=== PATIENT | female | born 1955 | race Caucasian/White ===

== ENCOUNTER → 2018-09-08 | Outpatient (CLI) | payer OTHER ==
[~2018-09-08] VITALS: Ht 157.5 cm; Wt 71.6 kg
[~2018-09-08] MED LIST: ACETAMINOPHEN-1 EAC1 PO; AMBIEN 10 MG TA10 MG PO; AMBIEN CR 6.26.25 MG PO; ATENOLOL 25 MG25 M1 PO; ATENOLOL 50 MG50 M1 PO; B12INJ IM; BRINTELLIX5 MG PO; BUTALBITAL COM1 EAC1 PO; CARAFATE 1 GM TA1 GM PO; CITRATE OF MAG296 M1 PO; COQ-10100 MG PO; DIFLUCAN; ERYTHROMYCIN250 MG PO; FIORICET 50-321 EACH PO; FISH OIL 1,001000 M2 PO; KLOR-CON 1010 MEQ PO; LOPRESSOR25 PO; NEXIUM 40 MG CA40 M1 PO; OXYCODONE HCL5 M1 PO; POTASSIUM20 PO; PRILOSEC40 MG PO; PRISTIQ100 MG PO; PROGESTERONE100 MG PO; SEROQUEL 100 M100 M2 PO; SEROQUEL 50 MG50 M2 PO; SEROQUEL XR 30300 M1 PO; SIMVASTATIN40 MG PO; SYNTHROID50 MCG PO; VITAMIN E400 UNIT PO; VOLTAREN GEL 1100 G2 TOP; VYVANSE30 MG PO; VYVANSE70 MG PO; XANAX 0.5 MG0.5 M1 PO; XANAX XR0.5 MG PO; ZOLPIDEM TART12.5 M1 PO
--- NOTE | ~2018-09-08 | HPC ---
[facility] [address] [place] [address] PAIN MANAGEMENT CONSULTATION Name: ERMELINDA MICHAUD Room #: REG [facility].#: [id number] Admission: 09/08/18 Attend Phys: Dick Sue DO Discharge: Date of : 59 Report #: [id number] THIS REPORT FOR: //name// CC: Melisa Sue DATE OF SERVICE: 09/08/2018 REFERRING PHYSICIAN: Melisa Kendall MD CHIEF COMPLAINT: Low back pain, left lower extremity pain with paresthesias, intermittent right buttock and posterolateral thigh pain. HISTORY OF PRESENT ILLNESS: As you know, the patient is a very pleasant 63-year-old female who returns today in followup visit with recurrent low back pain, bilateral lower extremity pain, left greater than right. She indicates pain today at a level of about 4/10. She states she was in her normal state of health, was going about normal activities of daily living with her pain began to return. She indicates pain progressively worsened over the past couple of weeks to a level of 4/10, states the pain is exacerbated with standing, walking and bending, improves with heat and cold compresses and epidural injections. Most recent epidural injection provided 75% improvement in overall pain lasting for nearly 5 months. She returns today in followup visit to undergo next in the series in hopes of building on success of previous intervention. ALLERGIES: NONSTEROIDAL ANTI-INFLAMMATORIES, ABILIFY, ADDERALL, SEROQUEL, TETRACYCLINE. CURRENT MEDICATIONS: Coenzyme Q 100 mg once a day, magnesium citrate p.r.n., vitamin E 400 units per day, omega-3 fish oil 1000 mg once a day, levothyroxine 50 mcg per day, diclofenac gel apply topically 3 times a day, Tylenol 3 with Codeine 1 tab t.i.d. p.r.n. pain, Pristiq 100 mg once a day, metoprolol 25 mg twice a day, quetiapine 50 mg 3 times a day, potassium chloride 10 mEq once a day, zolpidem 12.5 mg once a day, Vyvanse 30 mg once a day, alprazolam 0.5 mg once a day p.r.n., sucralfate 1 gram twice a day. SOCIAL HISTORY: The patient denies current tobacco use. Denies IV or illicit drug use. She is unaccompanied today. IMAGING: No new imaging available. PQRS: The patient has osteoarthritis of the low back, bilateral hips and bilateral knees. No rheumatoid arthritis. She is placing pain intensity 4/10. She is not a fall risk, has not had a fall in the last 3 months. She is not on a blood thinner. She is treated for hypertension. She is not taking any [address] [address] PAIN MANAGEMENT CONSULTATION Name: ERMELINDA MICHAUD [id number] Admission: 09/08/18 Attend Phys: Dick Sue DO Discharge: Date of : 59 Report #: [id number] chronic opioids. She has a low risk for opioid addiction. Pain impact tool, functional impact 43/70, [id number] interference of daily activities secondary to pain. PHYSICAL EXAMINATION: VITAL SIGNS: Blood pressure 145/77, pulse is 80, respiratory rate 16 and unlabored. The patient is 99% on room air. Height 5 feet 2 inches tall, weight 157.8 pounds, BMI calculated 28.9. GENERAL: Well-developed, well-nourished, well-hydrated 63-year-old female. She appears her stated age. She is placing current pain at around 4/10. HEENT: Normocephalic, atraumatic. Pupils equal, round, reactive to light. Extraocular muscles are intact. Sclerae nonicteric without injection. NEUROLOGIC: Cranial nerves 2-12 grossly intact. Speech is fluent. EXTREMITIES: Show no clubbing, no cyanosis, no edema. MUSCULOSKELETAL: Lower extremity strength appears symmetrical 5/5, intact to light touch from L1 through S2 dermatomes. Seated straight leg raising negative. Supine straight leg raising positive on the left. Taqueria test negative. Modified Gaenslen's positive for axial low back pain. Lumbar provocation testing is met with increasing axial back pain, no radiation of symptoms. ASSESSMENT: 1. Symptomatic lumbar radiculopathy. 2. Lumbosacral spondylosis with radiculopathy. 3. Facet arthropathy of the lumbar spine. 4. Lumbar degeneration of the lumbar spine. 5. Chronic intractable pain. PLAN: 1. The patient returns today in followup visit having noted 75% improvement in overall pain with a previous epidural injection under fluoroscopic guidance. The patient and I did discuss the possibility of having her undergo next in the series of epidural injections to build on the success of this previous intervention. The distribution of symptoms the patient is experiencing as well as the level of intensity of pain is similar to her previous evaluation. She has requested this epidural injection be provided today. We discussed the risks and the benefits of a lumbar epidural injection. These risks include but not necessarily limited to bleeding, bruising, infection, worsening pain, no relief of pain, also risk of temporary or permanent muscle weakness, temporary or permanent nerve damage, possible paralysis and . The patient states understood and wished to proceed. 2. No medication changes made at today's visit. The patient will continue current medical therapy as previously prescribed. 3. We will see the patient back in followup visit on an as needed basis for possible next in the series of epidural injections. [address] [address] PAIN MANAGEMENT CONSULTATION Name: ERMELINDA MICHAUD [id number] Admission: 09/08/18 Attend Phys: Dick Sue DO Discharge: Date of : 59 Report #: [id number] PROCEDURE NOTE DESCRIPTION OF PROCEDURE: L5-S1 interlaminar epidural steroid injection under fluoroscopic guidance. After obtaining written consent, the patient was taken back to fluoroscopy suite, placed in prone position with pillow under abdomen to decrease lumbar lordosis. Skin overlying lumbosacral area then prepped and draped in aseptic fashion. Lumbar intervertebral spaces were identified by AP fluoroscopy. Skin and subcutaneous tissue overlying target site of injection was anesthetized with 3 mL of 1% lidocaine. A 20-gauge 3-1/2 inch Tuohy needle advanced under fluoroscopic guidance towards the epidural space using a parasagittal approach. The epidural space identified using loss of resistance to air technique. After negative aspiration for heme or cerebrospinal fluid, 1 mL of Omnipaque injected. Lumbar epidurogram confirmed using both AP and lateral fluoroscopy. After negative aspiration for heme or cerebrospinal fluid, 5 mL of a solution containing 2 mL 40 mg per mL, 80 mg total triamcinolone, 3 mL lidocaine 1% injected slowly. Needle retracted fpc, flushed with 1 mL of 1% lidocaine and removed. Sterile bandage placed over injection site. No new motor deficits present in lower extremity following procedure. The patient tolerated the procedure well, carefully escorted to recovery room in stable condition. No apparent complications. After meeting discharge criteria, the patient discharged home. By: [id number] Dick Sue, /nt
[2018-09-08 09:33] VITALS: BP 145/77
== END | disposition home or self-care (01) ==
LOC: PAIN 09-07 10:14
DX: M51.16 Intervertebral disc disorders with radiculopathy, lumbar region (principal); M47.27 Other spondylosis with radiculopathy, lumbosacral region; M46.96 Unspecified inflammatory spondylopathy, lumbar region; G89.29 Other chronic pain; M19.90 Unspecified osteoarthritis, unspecified site; Z79.899 Other long term (current) drug therapy; Z88.8 Allergy status to other drugs, medicaments and biological substances; Z87.891 Personal history of nicotine dependence

== ENCOUNTER → 2019-03-29 | Outpatient (CLI) | payer OTHER ==
[~2019-03-29] VITALS: Ht 157.5 cm; Wt 61.7 kg
[2019-03-29 10:14] VITALS: BP 123/90
--- NOTE | 2019-03-29 10:24 | NUR ---
Pain Clinic Assessment: 1. History of Osteoarthritis: YES History of Rheumatoid Arthritis: Not Applicable 2. Height: 5 ft. 2 in. 157.5 cm. Weight: 136.0 lb. oz. 61.689 kg. Patient's BMI: 24.9 3. Vital Signs: BP: 123/90 Pulse: 83 Resp: 16 Temp: 02 Sat: 99 ECG Mon: 4. Pain Intensity: 9-10 5. Fall Risk: Dizziness: N Needs help standing or walking: N Fallen in the last 3 months: N Fall risk comments: 6. Patient on Blood Thinner: None 7. History of Hypertension: Y 8. Opioid Therapy greater than 6 weeks: N Opiate Contract Signed: 9. Risk Assessment Tool Provided: LOW RISK 3 10. Functional Assessment Tool: 59/70 11. Recreational Drug Use: Never Drug Type: Tobacco Use: Former Smoker Tobacco Type: Amount or Packs/day: How Many Years: Alcohol Use: No Frequency: Quant:
--- NOTE | 2019-03-30 12:16 | HPC ---
[facility] [address] [place] [address] PAIN MANAGEMENT CONSULTATION Name: ERMELINDA MICHAUD Room #: REG [facility].#: [id number] Admission: 03/29/19 ������������������ Attend Phys: Dick Sue DO Discharge: ������������������ Date of : 59 Report #: [id number] THIS REPORT FOR: //name// CC: Melisa Sue DATE OF SERVICE: 03/29/2019 CHIEF COMPLAINT: Low back pain, lower extremity pain with paresthesias. HISTORY OF PRESENT ILLNESS: As you know, the patient is a very pleasant 63-year-old female returning in followup visit with recurrent low back pain, lower extremity pain with paresthesias with left and right approximately equal from the lower extremity pain standpoint. She is indicating pain is chronic in nature, sharp in sensation, places current pain score anywhere from 9-10/10. She states standing, bending, walking exacerbates symptoms. Heat and cold compresses as well as previous epidural injections have improved overall pain. She indicates previous epidural injection gave 80% improvement in overall pain lasting for nearly 6 months. She returns today in followup visit requesting to undergo next in the series of epidural injections in hopes of similar improvement. She denies new injury or trauma or any changes in medication management since our last visit. ALLERGIES: NONSTEROIDAL ANTI-INFLAMMATORIES, ABILIFY, ADDERALL, SEROQUEL, TETRACYCLINE. CURRENT MEDICATIONS: See chart. SOCIAL HISTORY: The patient denies current tobacco use. Denies IV or illicit drug use. Denies any chronic alcohol use. She is unaccompanied today. IMAGING: No new imaging available. PQRS, the patient has known osteoarthritic changes of the bilateral hips, bilateral knees and lumbar spine. No rheumatoid arthritis. She is placing pain intensity today at 9-10/10. She is not a fall risk, has not had a fall in the last 3 months. She does not use any type of ambulatory assistive device. She is not on blood thinner. She is treated for hypertension. She is not on opioids, but does have a low opioid addiction potential. Pain impact score 59/70 indicating severe interference of daily activities secondary to pain. PHYSICAL EXAMINATION: VITAL SIGNS: Blood pressure 123/90, pulse 83, respiratory rate 16 and unlabored. The patient is 99% on room air. Height 5 feet 2 inches tall, weight 136 pounds, BMI calculated 24.9. [address] [address] PAIN MANAGEMENT CONSULTATION Name: ERMELINDA MICHAUD Room #: REG [facility]#: [id number] Admission: 03/29/19 ������������������ Attend Phys: Dick Sue DO Discharge: ������������������ Date of : 59 Report #: [id number] GENERAL: Well-developed, well-nourished, well-hydrated 63-year-old female, appearing stated age, rating pain at 9-10/10. HEENT: Normocephalic, atraumatic. Pupils equal, round, reactive to light. EXTREMITIES: Show no clubbing, no cyanosis and no edema. MUSCULOSKELETAL: Lower extremity strength is symmetrical again today 5/5, intact to light touch from L1 through S2 dermatomes. Seated straight leg raising negative. Supine straight leg raising positive. Taqueria's test is negative. Modified Gaenslen's positive for axial low back pain. Ankle clonus negative. Babinski's negative. ASSESSMENT: 1. Symptomatic lumbar radiculopathy. 2. Lumbosacral spondylosis with radiculopathy. 3. Facet arthropathy of the lumbar spine. 4. Lumbar degeneration. 5. Chronic intractable pain. PLAN: 1. The patient has returned today in followup visit requesting to undergo next in the series of epidural injections under fluoroscopic guidance. The patient did very well with previous epidural injection noting 80% improvement in overall pain lasting for nearly 6 months. She returns today in followup visit requesting to undergo next in the series of epidural injections. She denies any new injury or trauma that may have led to symptom recurrence. She has been advised risks and benefits of procedure, states understood and wished to proceed. 2. No medication changes made at today's visit. The patient will continue current medical therapy as previously prescribed. 3. We will see the patient back in followup visit on an as needed basis for possible next in the series of lumbar epidural injections. PROCEDURE NOTE PROCEDURE: L5-S1 interlaminar epidural steroid injection under fluoroscopic guidance. DESCRIPTION OF PROCEDURE: After obtaining written consent, the patient was taken back to fluoroscopy suite, placed in prone position with pillow under abdomen to decrease lumbar lordosis. Skin overlying lumbosacral area was then prepped and draped in aseptic fashion. The L5-S1 vertebral interspace identified by AP fluoroscopy. Skin and subcutaneous tissue overlying target site of injection was anesthetized with 3 mL of 1% lidocaine. A 20-gauge 3-1/2 inch Tuohy needle was advanced under fluoroscopic guidance towards the epidural space using a midline approach. Epidural space identified using loss of resistance to air technique. After negative aspiration for heme [facility] [address] [place] [address] PAIN MANAGEMENT CONSULTATION Name: ERMELINDA MICHAUD Room #: REG [facility]#: [id number] Admission: 03/29/19 ������������������ Attend Phys: Dick Sue DO Discharge: ������������������ Date of : 59 Report #: [id number] or cerebrospinal fluid, 1 mL of Omnipaque injected. Lumbar epidurogram confirmed using both AP and lateral fluoroscopy. After negative aspiration for heme or cerebrospinal fluid, 5 mL of a solution containing 2 mL 40 mg per mL 80 mg total triamcinolone, 3 mL lidocaine 1% injected slowly. Needle then retracted approximately half way, flushed with 1 mL of 1% lidocaine and then removed. Sterile bandage placed over injection site. No new motor deficits present in the lower extremities following procedure. The patient tolerated the procedure well, carefully escorted to recovery room in stable condition. No apparent complication. After meeting discharge criteria, the patient discharged home. ��������������������������������������������� <ELECTRONICALLY SIGNED> ���������������������������������������� By: Dick Sue DO ��������������������������������������������� 03/30/19 [id number] Dick Sue DO /nt
== END | disposition home or self-care (01) ==
LOC: PAIN 06:47
DX: M51.16 Intervertebral disc disorders with radiculopathy, lumbar region (principal); M47.27 Other spondylosis with radiculopathy, lumbosacral region; M47.26 Other spondylosis with radiculopathy, lumbar region; G89.29 Other chronic pain; I10 Essential (primary) hypertension; Z88.8 Allergy status to other drugs, medicaments and biological substances; M19.90 Unspecified osteoarthritis, unspecified site; Z79.899 Other long term (current) drug therapy; Z98.890 Other specified postprocedural states; Z87.891 Personal history of nicotine dependence

== ENCOUNTER → 2019-05-25 | Outpatient (CLI) | payer OTHER ==
[~2019-05-25] VITALS: Ht 157.5 cm; Wt 57.2 kg
[2019-05-25 10:11] VITALS: BP 116/63
--- NOTE | 2019-05-25 10:19 | NUR ---
Pain Clinic Assessment: 1. History of Osteoarthritis: YES History of Rheumatoid Arthritis: Not Applicable 2. Height: 5 ft. 2 in. 157.5 cm. Weight: 126.2 lb. oz. 57.244 kg. Patient's BMI: 23.1 3. Vital Signs: BP: 116/63 Pulse: 62 Resp: 14 Temp: 02 Sat: 100 ECG Mon: 4. Pain Intensity: 9-10 5. Fall Risk: Dizziness: N Needs help standing or walking: N Fallen in the last 3 months: N Fall risk comments: 6. Patient on Blood Thinner: None 7. History of Hypertension: Y 8. Opioid Therapy greater than 6 weeks: N Opiate Contract Signed: 9. Risk Assessment Tool Provided: LOW RISK 3 10. Functional Assessment Tool: 59/70 11. Recreational Drug Use: Never Drug Type: Tobacco Use: Former Smoker Tobacco Type: Amount or Packs/day: How Many Years: Alcohol Use: No Frequency: Quant:
--- NOTE | 2019-05-31 09:09 | HPC ---
[facility] [address] [place] [address] PAIN MANAGEMENT CONSULTATION Name: ERMELINDA MICHAUD Room #: REG [facility].#: [id number] Admission: 05/25/19 Attend Phys: Dick Sue DO Discharge: Date of : 59 Report #: [id number] THIS REPORT FOR: //name// CC: Melisa Sue DATE OF SERVICE: 05/25/2019 REFERRING PHYSICIAN: Melisa Kendall MD CHIEF COMPLAINT: Low back pain, lower extremity pain and paresthesias. HISTORY OF PRESENT ILLNESS: As you know, the patient is a very pleasant 63-year-old female who returns today in followup visit with recurrent low back pain, lower extremity pain with paresthesias, left greater than right. She indicates pain level at 8-9/10. She states that she was doing very well prior to a vacation to [place]. She states the activity in [place] exacerbated her symptoms quite quickly. She has "just been dealing with it" until just recently where the pain became intense enough that she sought further evaluation and treatment. She has been referred back to our clinic to trial next in the series of lumbar epidural injections to address recurrent lumbar radicular symptoms without specific injury or trauma. The patient indicates pain begins in low back, radiates down to legs, left greater than right. She indicates pain is exacerbated with standing, bending, walking, improves with heat, injections and cold compresses. She reports the previous epidural injection, gave 80% improvement in overall pain until the recurrence during the recent vacation. ALLERGIES: NONSTEROIDAL ANTI-INFLAMMATORIES, ABILIFY, ADDERALL, SEROQUEL, TETRACYCLINE. CURRENT MEDICATIONS: Coenzyme Q10, magnesium oxide, vitamin E, omega-3 fish oil, levothyroxine, diclofenac gel, Tylenol No. 3 with Codeine, Pristiq, metoprolol, quetiapine, potassium chloride, Seroquel, alprazolam, Vyvanse, zolpidem. SOCIAL HISTORY: The patient denies current tobacco use. Denies IV or illicit drug use. She denies any chronic alcohol use. She is unaccompanied today. IMAGING: No new imaging available. PQRS: The patient has known arthritic changes of the lumbar spine, bilateral hips and knees. No rheumatoid arthritis. She is placing pain intensity today at 9-10/10. She is not a fall risk, has not had a fall in last 3 months. She is not on blood thinners, but is treated for hypertension. She is on chronic opioids, but has a low opioid addiction potential. She is placing pain impact [address] [address] PAIN MANAGEMENT CONSULTATION Name: ERMELINDA MICHAUD Room #: REG [facility] M..#: [id number] Admission: 05/25/19 Attend Phys: Dick Sue DO Discharge: Date of : 59 Report #: [id number] score 59/70 indicating severe interference of daily activities secondary to pain. PHYSICAL EXAMINATION: VITAL SIGNS: Blood pressure 116/63, pulse 62, respiratory rate 14 and unlabored. The patient is 100% on room air. Height 5 feet 2 inches tall, weight 126.2 pounds, BMI calculated 23.1. GENERAL: Well-developed, well-nourished, well-hydrated 63-year-old female appearing stated age. Pain is rated around 9-10/10. HEENT: Normocephalic, atraumatic. Pupils equal, round and reactive to light. Speech fluent. The patient deemed a good historian. EXTREMITIES: Show no clubbing, no cyanosis and no edema. MUSCULOSKELETAL: Lower extremity strength equal and symmetrical 5/5, which is unchanged from previous evaluations. She remains intact to light touch from L1 through S2 dermatomes. Seated straight leg raising negative. Supine straight leg raising is positive on the left. Taqueria test negative. Modified Gaenslen's positive for axial low back pain. Ankle clonus negative. Babinski is negative. Gait appears normal. Stance is normal. The patient can easily tandem walk. ASSESSMENT: 1. Symptomatic lumbar radiculopathy. 2. Lumbosacral spondylosis with radiculopathy. 3. Facet arthropathy of the lumbar spine. 4. Lumbar degeneration. 5. Chronic intractable pain. PLAN: 1. The patient returns today in followup visit indicating recurrence of lumbar radicular symptoms without inciting injury or trauma. The patient reports about an 80% improvement in overall pain with previous epidural injection, but unfortunately, her symptoms have begun to return. She states her pain was doing very well until a recent trip to [place] where she exacerbated symptoms with increasing activities. She returns today in followup visit to undergo lumbar epidural injection under fluoroscopic guidance to address recurrent pain. The patient was advised risks and benefits of a lumbar epidural injection. These risks include but are not necessarily limited to bleeding, bruising, infection, worsening pain, no relief of pain, also risk of temporary or permanent muscle weakness, temporary or permanent nerve damage, possible paralysis, post-dural puncture headache and . The patient states understood and wished to proceed. 2. No medication changes made at today's visit. The patient will continue current medical therapy as previously prescribed. 3. We will see the patient back in followup visit on an as needed basis for next in the series of lumbar epidural injections. PROCEDURE NOTE [facility] [address] [email or web address] [address] PAIN MANAGEMENT CONSULTATION Name: ERMELINDA MICHAUD Room #: REG [facility].#: [id number] Admission: 05/25/19 Attend Phys: Dick Sue DO Discharge: Date of : 59 Report #: [id number] DESCRIPTION OF PROCEDURE: L5-S1 interlaminar epidural steroid injection under fluoroscopic guidance. After obtaining written consent, the patient was taken back to fluoroscopy suite, placed in prone position with pillow under abdomen to decrease lumbar lordosis. Skin overlying lumbosacral area prepped and draped in aseptic fashion. Lumbar intervertebral spaces were identified by AP fluoroscopy. Skin and subcutaneous tissue overlying target site of injection anesthetized with 3 mL of 1% lidocaine. A 20-gauge 3-1/2 inch Tuohy needle advanced under fluoroscopic guidance towards the epidural space using a paramedian approach. Epidural space identified using loss of resistance to air technique. After negative aspiration for heme or cerebrospinal fluid, 1 mL of Omnipaque injected. Lumbar epidurogram confirmed using both AP and lateral fluoroscopy. After negative aspiration for heme or cerebrospinal fluid, 5 mL of a solution containing 2 mL 40 mg per mL, 80 mg total triamcinolone along with 3 mL lidocaine 1% was injected slowly. Needle then retracted snf, flushed with 1 mL of 1% lidocaine and then removed. Sterile bandage placed over injection site. No new motor deficits present in the lower extremities following procedure. The patient tolerated procedure well, carefully escorted to recovery room in stable condition. No apparent complications. After meeting discharge criteria, the patient discharged home. <ELECTRONICALLY SIGNED> By: Dick Sue DO 05/31/19 0909 [id number] Dick Sue DO /nt
== END | disposition home or self-care (01) ==
LOC: PAIN 06:53
DX: M51.16 Intervertebral disc disorders with radiculopathy, lumbar region (principal); M47.27 Other spondylosis with radiculopathy, lumbosacral region; M12.88 Other specific arthropathies, not elsewhere classified, other specified site; G89.29 Other chronic pain; I10 Essential (primary) hypertension; Z88.8 Allergy status to other drugs, medicaments and biological substances; Z79.899 Other long term (current) drug therapy; Z87.891 Personal history of nicotine dependence

== ENCOUNTER → 2019-11-29 | Outpatient (CLI) | payer OTHER ==
[~2019-11-29] VITALS: Ht 157.5 cm; Wt 62.2 kg
[2019-11-29 13:08] VITALS: BP 144/79
--- NOTE | 2019-11-29 13:21 | NUR ---
Pain Clinic Assessment: 1. History of Osteoarthritis: YES History of Rheumatoid Arthritis: Not Applicable 2. Height: 5 ft. 2 in. 157.5 cm. Weight: 137.2 lb. oz. 62.233 kg. Patient's BMI: 25.1 3. Vital Signs: BP: 144/79 Pulse: 78 Resp: 16 Temp: 02 Sat: 99 ECG Mon: 4. Pain Intensity: 8-9 5. Fall Risk: Dizziness: N Needs help standing or walking: N Fallen in the last 3 months: N Fall risk comments: 6. Patient on Blood Thinner: None 7. History of Hypertension: Y 8. Opioid Therapy greater than 6 weeks: N Opiate Contract Signed: 9. Risk Assessment Tool Provided: LOW RISK 3 10. Functional Assessment Tool: 59/70 11. Recreational Drug Use: Never Drug Type: Tobacco Use: Former Smoker Tobacco Type: Amount or Packs/day: How Many Years: Alcohol Use: No Frequency: Quant:
--- NOTE | 2019-12-06 07:45 | HPC ---
[facility] [address] [place] [address] PAIN MANAGEMENT CONSULTATION Name: ERMELINDA MICHAUD Room #: REG [facility].#: [id number] Admission: 11/29/19 Attend Phys: Dick Sue DO Discharge: Date of : 59 Report #: [id number] THIS REPORT FOR: cc: Melisa Kendall MD, Diane S. MD Johnson, James E. DO ~ THIS REPORT FOR: //name// DATE OF SERVICE: 11/29/2019 Referring physician: Melisa Kendall MD CHIEF COMPLAINT: Low back pain, lower extremity pain with paresthesias. HISTORY OF PRESENT ILLNESS: As you know, the patient is a very pleasant 64-year-old female who has returned today in followup visit requesting to undergo next in the series of lumbar epidural injections under fluoroscopic guidance. The patient reports pain level today of 8-9/10. As you are aware, the patient has received excellent benefit with previous epidural injections, the most recent providing 75% improvement in overall pain lasting for nearly 4 months. Unfortunately, the patient has begun to experience recurrence of her typical lumbar radicular symptoms. 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 She has denied any injury or trauma that may have caused recurrence of pain. She returns today to undergo epidural injection under fluoroscopic guidance. ALLERGIES: NONSTEROIDAL ANTI-INFLAMMATORIES, ABILIFY, ADDERALL, SEROQUEL, TETRACYCLINE. CURRENT MEDICATIONS: See chart. SOCIAL HISTORY: The patient denies current tobacco use. Denies IV or illicit drug use. Denies any chronic alcohol use. She is unaccompanied today. IMAGING: No new imaging available. PQRS: The patient has known arthritic changes of the lumbar spine, bilateral hips and knees. No rheumatoid arthritis. She is placing pain today 8-9/10. She is not a fall risk, has not had a fall in last 3 months. She is not on blood thinners. She is treated for hypertension. She is not on chronic opioids and does have a low opiate addiction potential. Pain impact score 59/70 indicating severe interference of daily activities secondary to pain. [address] [address] PAIN MANAGEMENT CONSULTATION Name: ERMELINDA MICHAUD Room #: [facility].#: [id number] Admission: 11/29/19 Attend Phys: Dick Sue DO Discharge: Date of : 59 Report #: [id number] PHYSICAL EXAMINATION: VITAL SIGNS: Blood pressure 144/79, pulse 78, respiratory rate 16 and unlabored. The patient is 99% on room air. Height 5 feet 2 inches tall, weight 137.2 pounds, BMI calculated 25.1. GENERAL: Well-developed, well-nourished, well-hydrated, 64-year-old female appearing stated age, pain is rated around 8-9/10. HEENT: Normocephalic, atraumatic. Pupils equal, round, reactive to light. Extraocular muscles are intact. Sclerae nonicteric without injection. NEUROLOGIC: Cranial nerves 2-12 grossly intact. Speech fluent. The patient deemed a good historian. EXTREMITIES: Show no clubbing, no cyanosis, and no edema. MUSCULOSKELETAL: Lower extremity strength remains symmetrical again today 5/5, intact to light touch from L1 through S2 dermatomes. Seated straight leg raising is negative. Supine straight leg raising is positive on the left. Taqueria's test is negative. Modified Gaenslen's positive for axial low back pain. Ankle clonus is negative. Gait is mildly antalgic favoring left lower extremity. ASSESSMENT: 1. Symptomatic lumbar radiculopathy. 2. Lumbosacral spondylosis with radiculopathy. 3. Facet arthropathy of the lumbar spine. 4. Lumbar degeneration. 5. Chronic intractable pain. PLAN: 1. The patient returns today in followup visit to undergo next in the series of lumbar epidural injections under fluoroscopic guidance. 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 She states she is involved in fairly significant lifting and repositioning of the patient's throughout the day and has a new dog at home that she is also spending a significant amount of time lifting and bending and attending to her new animal that this may have exacerbated symptoms. She denies any specific injury or trauma that may have led to symptom reoccurrence. She does return today in followup visit with a typical lumbar radicular symptoms radiating mainly on the low back into the left leg. She has been advised risks and benefits of the requested lumbar epidural injection, states she understood and wished to proceed. 2. No medication changes made at today's visit. The patient will continue current medical therapy as previously prescribed. 3. We will see the patient back in followup visit on an as needed basis for possible next in the series of lumbar epidural injections. PROCEDURE NOTE [address] [address] PAIN MANAGEMENT CONSULTATION Name: ERMELINDA MICHAUD Room #: [facility]#: [id number] Admission: 11/29/19 Attend Phys: Dick Sue DO Discharge: Date of : 59 Report #: [id number] DESCRIPTION OF PROCEDURE: L5-S1 interlaminar epidural steroid injection under fluoroscopic guidance. After obtaining written consent, the patient was taken back to fluoroscopy suite, placed in prone position with pillow under abdomen to decrease lumbar lordosis. Skin overlying the lumbosacral area then prepped and draped in aseptic fashion. The L5-S1 vertebral interspace was identified by AP fluoroscopy. Skin and subcutaneous tissue overlying target site of injection anesthetized with 3 mL of 1% lidocaine. A 20-gauge 3-1/2 inch Tuohy needle advanced under fluoroscopic guidance towards the epidural space using a parasagittal approach. Epidural space identified using loss of resistance to air technique. After negative aspiration for heme or cerebrospinal fluid, 1 mL of Omnipaque injected. Lumbar epidurogram confirmed using both AP and lateral fluoroscopy. After negative aspiration for heme or cerebrospinal fluid, 5 mL of a solution containing 2 mL 40 mg per mL, 80 mg total triamcinolone along with 3 mL lidocaine 1% injected slowly. Needle retracted mcc, flushed with 1 mL of 1% lidocaine and then removed. Sterile bandage placed over injection site. There were no new motor deficits present in the lower extremities following procedure. The patient tolerated the procedure well, carefully escorted to recovery room in stable condition. No apparent complications. After meeting discharge criteria, the patient discharged home. <ELECTRONICALLY SIGNED> By: Dick Sue DO 12/06/19 0745 [id number] Dick Sue DO /cl
== END | disposition home or self-care (01) ==
LOC: PAIN 06:54
DX: M47.27 Other spondylosis with radiculopathy, lumbosacral region (principal); M47.26 Other spondylosis with radiculopathy, lumbar region; M51.16 Intervertebral disc disorders with radiculopathy, lumbar region; G89.29 Other chronic pain; I10 Essential (primary) hypertension; M19.90 Unspecified osteoarthritis, unspecified site; Z98.890 Other specified postprocedural states; Z79.899 Other long term (current) drug therapy; Z88.8 Allergy status to other drugs, medicaments and biological substances; Z87.891 Personal history of nicotine dependence

== ENCOUNTER → 2020-02-14 | Outpatient (CLI) | payer OTHER ==
[~2020-02-14] VITALS: Ht 157.5 cm; Wt 59.4 kg
--- NOTE | ~2020-02-14 | HPC ---
[facility] [place] [address] PAIN MANAGEMENT CONSULTATION Name: ERMELINDA MICHAUD Room #: REG [facility].#: [id number] Admission: 02/14/20 Attend Phys: Dick Sue DO Discharge: Date of : 59 Report #: [id number] THIS REPORT FOR: cc: Melisa Kendall MD,Dcik Grijalva MD, DO ~ CC: Melisa Sue DATE OF SERVICE: 02/14/2020 CHIEF COMPLAINT: Low back pain, lower extremity pain with paresthesias. HISTORY OF PRESENT ILLNESS: As you know, the patient is a very pleasant 64-year-old female returning today in followup visit with recurrence of lumbar radicular symptoms, now placing pain score at 8/10 to 9/10. 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 She reports this exacerbation of symptoms occurred spontaneously after this loss of balance by her patient. She returns today in followup visit requesting to undergo lumbar epidural injection to address recurrent lumbar radicular symptoms. ALLERGIES: NONSTEROIDAL ANTI-INFLAMMATORIES, ABILIFY, ADDERALL, SEROQUEL, TETRACYCLINE. CURRENT MEDICATIONS: See chart. SOCIAL HISTORY: The patient denies IV or illicit drug use. Denies any chronic alcohol use. She continues to report cigarette use despite our recommendations to discontinue. She is working, not receiving workmen compensation. IMAGING: No new imaging available. PQRS: The patient has known arthritic changes of the lumbar spine, bilateral hips and knees. No rheumatoid arthritis. She is placing current pain intensity at 8/10 to 9/10. She is not a fall risk, has not had a fall in last 3 months. She is not on blood thinners, but is treated for hypertension. She is not on chronic opioids, but does have a low opiate addiction potential. Pain impact score 59/70. PHYSICAL EXAMINATION: VITAL SIGNS: Blood pressure 150/70, pulse 90, respiratory rate 14 and unlabored. The patient is 97% on room air. Height 5 feet 2 inches tall, weight [facility] [address] [place] [address] PAIN MANAGEMENT CONSULTATION Name: ERMELINDA MICHAUD Room #: [facility].#: [id number] Admission: 02/14/20 Attend Phys: Dick Sue DO Discharge: Date of : 59 Report #: [id number] 131 pounds, BMI calculated 24.0. GENERAL: Well-developed, well-nourished, well-hydrated 64-year-old female appearing stated age, pain is rated anywhere from 8/10 to 9/10. HEENT: Normocephalic, atraumatic. Pupils equal, round, reactive to light. EXTREMITIES: Show no clubbing, no cyanosis, and no edema. MUSCULOSKELETAL: Lower extremity strength remains symmetrical again today. Seated straight leg raising negative. Supine straight leg raising is positive on the left more than the right. Modified Gaenslen positive for axial low back pain. Ankle clonus negative. Babinski is negative. There is palpatory tenderness over the paraspinal musculature of lower lumbar spine. No spinous process tenderness. ASSESSMENT: 1. Symptomatic lumbar radiculopathy. 2. Lumbosacral spondylosis with radiculopathy. 3. Facet arthropathy of the lumbar spine. 4. Lumbar degeneration. 5. Chronic intractable pain. PLAN: 1. The patient returns today in followup visit requesting to undergo lumbar epidural injection under fluoroscopic guidance to address lumbar radicular symptoms that reoccurred after the incident with one of her patients. She indicates no other specific injury or trauma that may have led to symptom reoccurrence. She returns today to undergo lumbar epidural injection under fluoroscopic guidance. The patient has been advised risks and benefits of the procedure, states understood and wished to proceed. 2. No medication changes made at today's visit. The patient will continue current medical therapy as previously prescribed. 3. We will see the patient back in followup visit on an as needed basis for possible next in the series of epidural injections. We are hopeful the patient will see good and prolonged benefit with today's injection. PROCEDURE NOTE: L5-S1 left paramedian epidural steroid injection under fluoroscopic guidance. After obtaining written consent, the patient was taken back to fluoroscopy suite, placed in prone position with pillow under abdomen to decrease lumbar lordosis. Skin overlying lumbosacral area then prepped and draped in aseptic fashion. The L5-S1 vertebral interspace identified by AP fluoroscopy. Skin and subcutaneous tissue overlying target site injection anesthetized with 3 mL of 1% lidocaine. A 20-gauge 3-1/2 inch Tuohy needle advanced under fluoroscopic guidance towards the epidural space using a left paramedian approach. Epidural space identified using loss of resistance to air technique. After negative aspiration for heme [facility] [address] [place] [address] PAIN MANAGEMENT CONSULTATION Name: ERMELINDA MICHAUD Room #: [facility]#: [id number] Admission: 02/14/20 Attend Phys: Dick Sue DO Discharge: Date of : 59 Report #: [id number] or cerebrospinal fluid, 1 mL of Isovue injected. A lumbar epidurogram was confirmed using both AP and lateral fluoroscopy. After negative aspiration for heme or cerebrospinal fluid, 5 mL of a solution containing 2 mL 40 mg per mL, 80 mg total triamcinolone along with 3 mL of lidocaine 1% injected slowly. Needle then retracted usp, flushed with 1 mL of 1% lidocaine and then removed. Sterile bandage placed over injection site. No new motor deficits present in the lower extremities following procedure. The patient tolerated procedure well, carefully escorted to recovery room in stable condition. No apparent complications. After meeting discharge criteria, the patient was then discharged home. By: [id number] Dick Sue DO /nt
[2020-02-14 10:15] VITALS: BP 150/70
--- NOTE | 2020-02-14 10:20 | NUR ---
Pain Clinic Assessment: 1. History of Osteoarthritis: YES History of Rheumatoid Arthritis: Not Applicable 2. Height: 5 ft. 2 in. 157.5 cm. Weight: 131.0 lb. oz. 59.421 kg. Patient's BMI: 24.0 3. Vital Signs: BP: 150/70 Pulse: 90 Resp: 14 Temp: 02 Sat: 97 ECG Mon: 4. Pain Intensity: 8-9 5. Fall Risk: Dizziness: Y Needs help standing or walking: N Fallen in the last 3 months: N Fall risk comments: 6. Patient on Blood Thinner: None 7. History of Hypertension: Y 8. Opioid Therapy greater than 6 weeks: N Opiate Contract Signed: 9. Risk Assessment Tool Provided: LOW RISK 3 10. Functional Assessment Tool: 59 11. Recreational Drug Use: Never Drug Type: Tobacco Use: Former Smoker Tobacco Type: Amount or Packs/day: How Many Years: Alcohol Use: No Frequency: Quant:
== END | disposition home or self-care (01) ==
LOC: PAIN 01-17 13:00
DX: M51.16 Intervertebral disc disorders with radiculopathy, lumbar region (principal); M47.27 Other spondylosis with radiculopathy, lumbosacral region; M47.26 Other spondylosis with radiculopathy, lumbar region; G89.29 Other chronic pain; Z98.890 Other specified postprocedural states; Z79.899 Other long term (current) drug therapy; Z88.8 Allergy status to other drugs, medicaments and biological substances

== ENCOUNTER → 2020-05-16 | Outpatient (CLI) | payer OTHER ==
[~2020-05-16] VITALS: Ht 157.5 cm; Wt 61.3 kg
--- NOTE | ~2020-05-16 | HPC ---
[facility] [place] [address] PAIN MANAGEMENT CONSULTATION Name: ERMELINDA MICHAUD Room #: [facility].#: [id number] Admission: 05/16/20 Attend Phys: Dick Sue DO Discharge: Date of : 59 Report #: [id number] THIS REPORT FOR: cc: Melisa Kendall MD,Dick Grijalva MD, DO ~ CC: Melisa Sue DATE OF SERVICE: 05/16/2020 REFERRING PHYSICIAN: Melisa Kendall M.D. CHIEF COMPLAINT: Low back pain, lower extremity pain with paresthesias. HISTORY OF PRESENT ILLNESS: As you know, the patient is a very pleasant 64-year-old female who has returned today in followup visit with recurrent low back pain, lower extremity pain with paresthesias. The patient is placing her current pain score at 5/10. She states pain is constant in nature, aching in sensation. Pain is exacerbated with standing, bending, walking, lifting and tends to worsen in the evening hours. She also notes worsening of symptoms due to carrying her new dog. Pain is alleviated with heat and cold compresses, epidural injections and rest. She reports about 75% improvement in overall pain with the epidural injection provided at last visit. She returns today in followup visit for the next in the series. She denies any injury or trauma that may have led to symptom reoccurrence. She believes that carrying her 45-pound dog around is the source of the recurrent pain. ALLERGIES: NONSTEROIDAL ANTI-INFLAMMATORIES, ABILIFY, ADDERALL, SEROQUEL, TETRACYCLINE. CURRENT MEDICATIONS: See chart. SOCIAL HISTORY: The patient denies IV or illicit drug use. Denies any chronic alcohol use. She continues to smoke despite our recommendations to discontinue and how it affects her chronic ongoing pain. She is unaccompanied today. IMAGING: No new imaging available. PQRS: The patient has known arthritic changes of the lumbar spine, bilateral hips and knees. No rheumatoid arthritis. Pain intensity today is 5/10, not a fall risk nor has she had a fall in last 3 months. She is not on blood thinners, but is treated for hypertension. She is not on opioids, but has a low opiate addiction potential based on our assessment tool. Pain impact 59/70 indicating severe interference of daily activities secondary to pain. [facility] [address] [place] [address] PAIN MANAGEMENT CONSULTATION Name: ERMELINDA MICHAUD Room #: REG CLI [facility]#: [id number] Admission: 05/16/20 Attend Phys: Dick Sue DO Discharge: Date of : 59 Report #: [id number] PHYSICAL EXAMINATION: VITAL SIGNS: Blood pressure 118/67, pulse 73, respiratory rate 16 and unlabored. The patient is 100% on room air. Height 5 feet 2 inches tall, weight 135.2 pounds, BMI calculated 24.7. GENERAL: Well-developed, well-nourished, well-hydrated 64-year-old female appearing stated age, pain is rated today 5/10. HEENT: Normocephalic, atraumatic. Pupils are equal, round and reactive. EXTREMITIES: Showed no clubbing, no cyanosis, no edema. MUSCULOSKELETAL: Lower extremity strength is symmetrical again today 5/5. Muscle bulk and tone is equal and symmetrical in comparing left lower extremity to right. Seated straight leg raising negative. Supine straight leg raising positive on the left. Taqueria's test is negative. ASSESSMENT: 1. Symptomatic lumbar radiculopathy. 2. Lumbosacral spondylosis with radiculopathy. 3. Facet arthropathy of the lumbar spine. 4. Lumbar degeneration. 5. Chronic intractable pain. PLAN: 1. The patient returns today in followup visit to undergo next in the series of lumbar epidural injections under fluoroscopic guidance to address 5/10 pain. The patient denies injury or trauma that may have led to symptom development. She believes she may have exacerbated symptoms while carrying her 45-pound dog. We discussed with the patient that she should limit the lifting of animal that large as it will put significant strain on her. She only weighs 135 pounds and the dog is nearly one-quarter of her weight. She needs to limit that lifting if at all possible. 2. The patient has been advised risks and benefits of a lumbar epidural injection. These risks include but are not necessarily limited to bleeding, bruising, infection, worsening pain, no relief of pain, also risk of temporary or permanent muscle weakness, temporary or permanent nerve damage, possible paralysis, post-dural puncture headache and . The patient states he understood and wished to proceed. 3. No medication changes made at today's visit. The patient will continue current medical therapy as prior prescribed. 4. We will see the patient back in followup visit on an as needed basis for possible next in the series of lumbar epidural injections. PROCEDURE NOTE DESCRIPTION OF PROCEDURE: L5-S1 left parasagittal epidural steroid injection under fluoroscopic guidance. [address] [address] PAIN MANAGEMENT CONSULTATION Name: ERMELINDA MICHAUD Room #: [facility]#: [id number] Admission: 05/16/20 Attend Phys: Dick Sue DO Discharge: Date of : 59 Report #: [id number] After obtaining written consent, the patient was taken back to fluoroscopy suite, placed in prone position with pillow under abdomen to decrease lumbar lordosis. Skin overlying lumbosacral area then prepped and draped in aseptic fashion. L5-S1 vertebral interspace identified by AP fluoroscopy. Skin and subcutaneous tissue overlying target site injection anesthetized with 2 mL of 1% lidocaine. A 20-gauge 3-1/2 inch Tuohy needle advanced under fluoroscopic guidance towards the epidural space using a left parasagittal approach. Epidural space identified using loss of resistance to air technique. After negative aspiration for heme or cerebrospinal fluid, 1 mL of Omnipaque injected. A lumbar epidurogram was confirmed using both AP and lateral fluoroscopy. After negative aspiration for heme or cerebrospinal fluid, 5 mL of a solution containing 2 mL 40 mg per mL, 80 mg total triamcinolone along with 3 mL of lidocaine 1% injected slowly. Needle then retracted care home, flushed with 1 mL of 1% lidocaine and removed. Sterile bandage placed over injection site. No new motor deficits present in the lower extremities following procedure. The patient tolerated procedure well, carefully escorted to recovery room in stable condition. No apparent complications. After meeting discharge criteria, the patient discharged home. By: [id number] Dick Sue, DO /nt
[2020-05-16 13:16] VITALS: BP 118/67
--- NOTE | 2020-05-16 13:27 | NUR ---
Pain Clinic Assessment: 1. History of Osteoarthritis: BACK History of Rheumatoid Arthritis: Not Applicable 2. Height: 5 ft. 2 in. 157.5 cm. Weight: 135.2 lb. oz. 61.326 kg. Patient's BMI: 24.7 3. Vital Signs: BP: 118/67 Pulse: 73 Resp: 16 Temp: 02 Sat: 100 ECG Mon: 4. Pain Intensity: 5 5. Fall Risk: Dizziness: N Needs help standing or walking: N Fallen in the last 3 months: N Fall risk comments: 6. Patient on Blood Thinner: None 7. History of Hypertension: Y 8. Opioid Therapy greater than 6 weeks: N Opiate Contract Signed: 9. Risk Assessment Tool Provided: LOW RISK 3 10. Functional Assessment Tool: 59/70 11. Recreational Drug Use: Never Drug Type: Tobacco Use: Former Smoker Tobacco Type: Amount or Packs/day: How Many Years: Alcohol Use: No Frequency: Quant:
== END ==
LOC: PAIN 07:02
PROVIDERS: ATTEND Anesthesiology Pain Medicine
DX: M54.5 Low back pain (principal); M47.27 Other spondylosis with radiculopathy, lumbosacral region; G89.29 Other chronic pain; M51.16 Intervertebral disc disorders with radiculopathy, lumbar region; Z79.899 Other long term (current) drug therapy; Z88.8 Allergy status to other drugs, medicaments and biological substances

== ENCOUNTER → 2020-08-01 | Outpatient (CLI) | payer OTHER ==
[~2020-08-01] VITALS: Ht 157.5 cm; Wt 65.0 kg
--- NOTE | ~2020-08-01 | HPC ---
[address] [address] PAIN MANAGEMENT CONSULTATION Name: ERMELINDA MICHAUD Room #: REG [facility].#: [id number] Admission: 08/01/20 Attend Phys: Dick Sue DO Discharge: Date of : 59 Report #: [id number] CC: Melisa Sue DATE OF SERVICE: 08/01/2020 REFERRING PHYSICIAN: Melisa Kendall MD CHIEF COMPLAINT: Low back pain, right lower extremity pain with paresthesias. HISTORY OF PRESENT ILLNESS: As you know, the patient is a very pleasant 65-year-old female who has returned today in followup visit requesting to undergo lumbar epidural injection under fluoroscopic guidance to address lumbar radiculopathy involving the low back and right lower extremity. She is placing her current pain score at 8/10. She states she has been doing very well until just recently where she had a slow and progressive return of symptoms. She denies injury or trauma that may have led to symptom reoccurrence. She reports that previous epidural injection gave easily over 50% improvement in overall pain lasting until just recently where she has had a slow and progressive return of pain. She returns today in followup visit to begin the next in the series of epidural injections. The patient has not started any medications that would preclude us from having the patient to undergo the procedure today. ALLERGIES: NONSTEROIDAL ANTI-INFLAMMATORIES, ABILIFY, ADDERALL, SEROQUEL, TETRACYCLINE. CURRENT MEDICATIONS: Coenzyme Q10, magnesium citrate, vitamin E, omega-3 fish oil, levothyroxine, diclofenac, Tylenol No. 3, desvenlafaxine, metoprolol, quetiapine, potassium chloride, zolpidem, Vyvanse, alprazolam. SOCIAL HISTORY: The patient denies IV or illicit drug use. Denies any chronic alcohol use. She is currently working, not receiving workmen's compensation, unaccompanied today. IMAGING: No new imaging available. PQRS: The patient has known arthritic changes of the lumbar spine, bilateral hips and knees. No reported rheumatoid arthritis. She is placing pain intensity at 8/10. She is not a fall risk, has not had a fall in the last 3 months. She is not on blood thinners, but is treated for hypertension. She is on opioids, but not chronically. She is a low risk for opioid addiction based on our assessment tool. Pain impact is 59/70, severe interference of daily activities secondary to pain. PHYSICAL EXAMINATION: VITAL SIGNS: Blood pressure 130/76, pulse 77, respiratory rate 14 and unlabored. The patient is 100% on room air. Height 5 feet 2 inches tall, weight 143.2 pounds, BMI calculated 26.2. GENERAL: Well-developed, well-nourished, well-hydrated 65-year-old female appearing stated age, pain is rated today at 8/10. HEENT: Normocephalic, atraumatic. Extraocular muscles are intact. EXTREMITIES: Show no clubbing, no cyanosis, no edema. MUSCULOSKELETAL: Lower extremity strength remains symmetrical again today 5/5. Gait appears normal. Seated straight leg raising negative. Supine straight leg raising is positive at about 65 degree angle on the right and about 70-degree angle on the left. Taqueria's test is negative. ASSESSMENT: 1. Symptomatic lumbar radiculopathy. 2. Lumbosacral spondylosis with radiculopathy. 3. Facet arthropathy of the lumbar spine. 4. Lumbar degeneration. 5. Chronic intractable pain. PLAN: 1. The patient returns today in followup visit to undergo lumbar epidural injection under fluoroscopic guidance. She has received excellent benefit with previous epidural injections, hopeful to see similar improvement today. She has been advised risks and benefits of the procedure. These risks include but are not necessarily limited to bleeding, bruising, infection, worsening pain, no relief of pain, also risk of temporary or permanent muscle weakness, temporary or permanent nerve damage, possible paralysis and . The patient states understood and wished to proceed. 2. No medication changes made at today's visit. We recommend the patient to continue current medical therapy as prior prescribed. 3. We will see the patient back in followup visit on an as needed basis for possible next in the series of lumbar epidural injections. We are hopeful the patient will see good and prolonged benefit with today's epidural injection. PROCEDURE NOTE DESCRIPTION OF PROCEDURE: L5-S1 right paramedian epidural steroid injection under fluoroscopic guidance. After obtaining written consent, the patient was taken back to fluoroscopy suite, placed in prone position with pillow under abdomen to decrease lumbar lordosis. Skin overlying the lumbosacral area then prepped and draped in aseptic fashion. The L5-S1 vertebral interspace identified by AP fluoroscopy. Skin and subcutaneous tissue overlying the target site of injection anesthetized with 3 mL of 1% lidocaine. A 20-gauge 3-1/2 inch Tuohy needle advanced under fluoroscopic guidance towards the epidural space using right paramedian approach. Epidural space identified using loss of resistance to air technique. After negative aspiration for heme or cerebrospinal fluid, 1 mL of Omnipaque injected. Lumbar epidurogram was confirmed using both AP and lateral fluoroscopy. After negative aspiration for heme or cerebrospinal fluid, 5 mL of a solution containing 2 mL 40 mg per mL, 80 mg total triamcinolone along with 3 mL of lidocaine 1% injected slowly. Needle retracted mcc, flushed with 1 mL of 1% lidocaine and then removed. Sterile bandage placed over injection site. No new motor deficits present in lower extremity following the procedure. The patient tolerated procedure well, carefully escorted to recovery room in stable condition. No apparent complications. After meeting discharge criteria, the patient discharged home. By: [id number] Dick Sue DO /nt
[2020-08-01 13:32] VITALS: BP 130/76
--- NOTE | 2020-08-01 13:48 | NUR ---
Pain Clinic Assessment: 1. History of Osteoarthritis: BACK History of Rheumatoid Arthritis: Not Applicable 2. Height: 5 ft. 2 in. 157.5 cm. Weight: 143.2 lb. oz. 64.955 kg. Patient's BMI: 26.2 3. Vital Signs: BP: 130/76 Pulse: 77 Resp: 14 Temp: 02 Sat: 100 ECG Mon: 4. Pain Intensity: 8 5. Fall Risk: Dizziness: N Needs help standing or walking: N Fallen in the last 3 months: N Fall risk comments: 6. Patient on Blood Thinner: None 7. History of Hypertension: Y 8. Opioid Therapy greater than 6 weeks: N Opiate Contract Signed: 9. Risk Assessment Tool Provided: LOW RISK 3 10. Functional Assessment Tool: 59/70 11. Recreational Drug Use: Never Drug Type: Tobacco Use: Former Smoker Tobacco Type: Amount or Packs/day: How Many Years: Alcohol Use: No Frequency: Quant:
== END ==
LOC: PAIN 06:59
PROVIDERS: ATTEND Anesthesiology Pain Medicine
DX: M54.5 Low back pain (principal); M47.27 Other spondylosis with radiculopathy, lumbosacral region; M51.16 Intervertebral disc disorders with radiculopathy, lumbar region; G89.29 Other chronic pain; Z79.899 Other long term (current) drug therapy; Z88.8 Allergy status to other drugs, medicaments and biological substances; Z87.891 Personal history of nicotine dependence

== ENCOUNTER → 2021-01-01 | Outpatient (CLI) | payer OTHER ==
[~2021-01-01] VITALS: Ht 157.5 cm; Wt 69.5 kg
[2021-01-01 14:22] VITALS: BP 150/75
--- NOTE | 2021-01-02 08:12 | HPC ---
[facility] [place] [address] PAIN MANAGEMENT CONSULTATION Name: ERMELINDA MICHAUD [id number] Admission: 01/01/21 Attend Phys: Dick Sue DO Discharge: Date of : 59 Report #: [id number] THIS REPORT FOR: cc: Melisa Kendall MD, Diane S. MD Johnson, James E. DO ~ DATE OF SERVICE: 01/01/2021 CHIEF COMPLAINT: Low back pain, right lower extremity pain with paresthesias. HISTORY OF PRESENT ILLNESS: As you know, the patient is a very pleasant 65-year-old female who has returned today in followup visit with recurrence of lumbar radiculopathy involving the right low back and right lower extremity. The patient is indicating pain level of 5/10. 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 She states that all of the activities to take care of this individual have exacerbated her symptoms. She denies any specific injury or trauma. She returns today in followup visit to undergo lumbar epidural injection under fluoroscopic guidance. She reports, with the previous epidural injection, 70% improvement in overall pain lasting until just recently. ALLERGIES: NONSTEROIDAL ANTI-INFLAMMATORIES, ABILIFY, ADDERALL, SEROQUEL, AND TETRACYCLINE. CURRENT MEDICATIONS: See chart. SOCIAL HISTORY: The patient denies IV or illicit drug use. Denies any chronic alcohol use. She is reporting she is a former smoker. She is unaccompanied today. IMAGING: No new imaging available. PQRS: The patient has known arthritic changes of the lumbar spine, bilateral hips, and knees. No rheumatoid arthritis. She is placing current pain intensity at 5/10. She is not a fall risk and has not had a fall in the last 3 months. She is not on blood thinners, but is treated for hypertension. She is not on chronic opioids has has a low opioid addiction potential based on our assessment tool. Pain impact is 59/70, severe interference of daily activities secondary to pain. PHYSICAL EXAMINATION: VITAL SIGNS: Blood pressure 150/75, pulse 77, respiratory rate 14 and unlabored. The patient is 98% on room air. Height 5 feet 2 inches tall, weight 153.2 pounds, BMI calculated 28.0. GENERAL: Well-developed, well-nourished, well-hydrated, 65-year-old female appearing stated age, placing current pain score at 5/10. [address] [address] PAIN MANAGEMENT CONSULTATION Name: ERMELINDA MICHAUD Room #: REG [facility]#: [id number] Admission: 01/01/21 Attend Phys: Dick Sue DO Discharge: Date of : 59 Report #: [id number] HEENT: Normocephalic, atraumatic. Pupils are equal and responsive. The patient is wearing a mask in compliance with COVID-19 regulations. EXTREMITIES: Show no clubbing, no cyanosis. No appreciable edema. MUSCULOSKELETAL: Seated straight leg raising negative. Supine straight leg raising positive on the right. REEMA's test is negative. Modified Gaenslen's positive for axial low back pain. Ankle clonus negative. Babinski is negative. ASSESSMENT: 1. Symptomatic lumbar radiculopathy. 2. Lumbosacral spondylosis with radiculopathy. 3. Facet arthropathy of the lumbar spine. 4. Lumbar degeneration. 5. Chronic intractable pain. PLAN: 1. The patient returns today in followup visit requesting to undergo lumbar epidural injection under fluoroscopic guidance. The patient has done very well with previous epidural injections, hopeful to see similar improvement today. She has been advised of the risks and the benefits of a lumbar epidural injection, states understood and wished to proceed. 2. No medication changes made at today's visit. The patient will continue current medical therapy as prior prescribed. 3. We plan to see the patient back in followup visit on an as-needed basis for the next in the series of lumbar epidural injections. We are hopeful the patient will see good and prolonged benefit with today's procedure. PROCEDURE NOTE DESCRIPTION OF PROCEDURE: L5-S1 right paramedian epidural steroid injection under fluoroscopic guidance. After obtaining written consent, the patient was taken back to fluoroscopy suite, placed in prone position with pillow under abdomen to decrease lumbar lordosis. Skin overlying the lumbosacral area was then prepped and draped in aseptic fashion. L5-S1 vertebral interspace was identified by AP fluoroscopy. Skin and subcutaneous tissue overlying target site of injection anesthetized with 3 mL of 1% lidocaine. A 20-gauge 3-1/2 inch Tuohy needle advanced under fluoroscopic guidance towards the epidural space using a right paramedian approach. The epidural space identified using loss of resistance to air technique. After negative aspiration for heme or cerebrospinal fluid, 1 mL of Omnipaque injected. Lumbar epidurogram confirmed using both AP and lateral fluoroscopy. After negative aspiration for heme or cerebrospinal fluid, 5 mL of a solution containing 2 mL 40 mg per mL, 80 mg total triamcinolone along with 3 mL of lidocaine 1% injected slowly. Needle retracted intermediate, flushed with 1 mL of 1% lidocaine and then removed. Sterile [address] [address] PAIN MANAGEMENT CONSULTATION Name: ERMELINDA MICHAUD [id number] Admission: 01/01/21 Attend Phys: Dick Sue DO Discharge: Date of : 59 Report #: [id number] bandage placed over injection site. No new motor deficits present in the lower extremities following procedure. The patient tolerated the procedure well, carefully escorted to recovery room in stable condition. No apparent complications. After meeting discharge criteria, the patient discharged home. <ELECTRONICALLY SIGNED> By: Dick Sue DO 01/02/21 0812 [id number] Dick Sue DO /nt
== END | disposition home or self-care (01) ==
LOC: PAIN 06:55
PROVIDERS: ATTEND Anesthesiology Pain Medicine
DX: M51.16 Intervertebral disc disorders with radiculopathy, lumbar region (principal); M47.27 Other spondylosis with radiculopathy, lumbosacral region; M47.26 Other spondylosis with radiculopathy, lumbar region; G89.29 Other chronic pain; I10 Essential (primary) hypertension; M19.90 Unspecified osteoarthritis, unspecified site; Z98.890 Other specified postprocedural states; Z79.899 Other long term (current) drug therapy; Z88.8 Allergy status to other drugs, medicaments and biological substances

== ENCOUNTER → 2021-07-02 | Outpatient (CLI) | payer OTHER ==
[~2021-07-02] VITALS: Ht 157.5 cm; Wt 66.2 kg
--- NOTE | ~2021-07-02 | HPC ---
[facility] [place] [address] [place] [address] PAIN MANAGEMENT CONSULTATION Name: ERMELINDA MICHAUD Room #: REG [facility] Iván.#: [id number] Admission: 07/02/21 Attend Phys: Dick Sue DO Discharge: Date of : 59 Report #: [id number] THIS REPORT FOR: cc: Melisa Kendall MD,Dick Grijalva MD, DO ~ cc: Melisa Kendall MD DATE OF SERVICE: 07/02/2021 CHIEF COMPLAINT: Low back pain, lower extremity pain with paresthesias. HISTORY OF PRESENT ILLNESS: As you know, the patient is a very pleasant 65-year-old female who has returned today in followup visit to undergo next in the series of lumbar epidural injections. The patient reports previous epidural injection, provided 80% improvement in overall pain lasting until just recently where she has had a slow and progressive return of symptoms. She is denying any specific injury or trauma that has led to recurrence of pain. She indicates the pain is aching, sharp, stabbing, tenderness, grabbing, numbness and tingling when describing pain, exacerbated with activities and reaching and improves with walking and lumbar epidural injections. She returns today in followup visit, requesting to undergo lumbar epidural injection under fluoroscopic guidance in hopes of improving pain. ALLERGIES: NONSTEROIDAL ANTI-INFLAMMATORIES, ABILIFY, ADDERALL, SEROQUEL, TETRACYCLINE. CURRENT MEDICATIONS: See chart. SOCIAL HISTORY: The patient denies tobacco use. Denies IV or illicit drug use. She is working, unaccompanied today. IMAGING: No new imaging available. PQRS: The patient has known arthritic changes of lumbar spine, bilateral hips and knees. No rheumatoid arthritis. She is placing pain intensity today at 8/10. She is not a fall risk, does not have fall in last 3 months. She is not on blood thinners, but is treated for hypertension. She is on no opioids and has a low opiate addiction potential. Pain impact is 59/70, severe interference of daily activities secondary to pain. PHYSICAL EXAMINATION: VITAL SIGNS: Blood pressure 137/73, pulse 80, respiratory rate 14 and unlabored. The patient 100% on room air. Height 5 feet 2 inches tall, weight 146 pounds, BMI calculated 26.7. GENERAL: Well-developed, well-nourished, well-hydrated 65-year-old female appearing stated age, pain is rated today 8/10. [address] [address] PAIN MANAGEMENT CONSULTATION Name: ERMELINDA MICHAUD Room #: REG [facility]#: [id number] Admission: 07/02/21 Attend Phys: Dick Sue DO Discharge: Date of : 59 Report #: [id number] HEENT: Normocephalic, atraumatic. Pupils equal, round and responsive. She is wearing a mask in compliance with COVID-19 regulations. EXTREMITIES: Show no clubbing, no cyanosis, no edema. MUSCULOSKELETAL: Lower extremity strength is symmetrical again today 5/5. Gait appears normal. Seated straight leg raising negative. Supine straight leg raising positive on the right. Fabere's test is negative. Lumbar provocation testing is met with slight increase in axial back pain. ASSESSMENT: 1. Symptomatic lumbar radiculopathy. 2. Lumbosacral spondylosis with radiculopathy. 3. Facet arthropathy of lumbar spine. 4. Lumbar degeneration. 5. Chronic intractable pain. PLAN: 1. The patient returns today in followup visit requesting to undergo lumbar epidural injection under fluoroscopic guidance. She has done very well with previous epidural injections, hopeful to see similar improvement today. She has been advised of the risks and the benefits of this procedure. These risks include but are not necessarily limited to bleeding, bruising, infection, worsening pain, no relief of pain, also risk of temporary or permanent muscle weakness, temporary or permanent nerve damage, possible paralysis, and . The patient states understood and wished to proceed. 2. No medication changes made at today's visit. The patient will continue current medical therapy as prior prescribed. 3. We will plan to see the patient back in followup visit on an as needed basis for the next in the series of epidural injections. PROCEDURE NOTE: DESCRIPTION OF PROCEDURE: L5-S1 interlaminar epidural steroid injection under fluoroscopic guidance. After obtaining written consent, the patient was taken back to fluoroscopy suite, placed in prone position with pillow under abdomen to decrease lumbar lordosis. Skin overlying lumbosacral area prepped and draped in aseptic fashion. The L5-S1 vertebral interspace was identified by AP fluoroscopy. Skin and subcutaneous tissue overlying target site injection anesthetized with 3 mL of 1% lidocaine. A 20 gauge 3-1/2 inch Tuohy needle advanced under fluoroscopic guidance towards the epidural space using a paramedian approach. Epidural space identified using loss of resistance to air technique. After negative aspiration for heme or cerebrospinal fluid, 1 mL of Omnipaque injected. Lumbar epidurogram was confirmed using both AP and lateral fluoroscopy. After negative aspiration for [address] [address] PAIN MANAGEMENT CONSULTATION Name: ERMELINDA MICHAUD Room #: REG [facility]#: [id number] Admission: 07/02/21 Attend Phys: Dick Sue DO Discharge: Date of : 59 Report #: [id number] heme or cerebrospinal fluid, 5 mL of a solution containing 2 mL 40 mg per mL 80 mg total triamcinolone along with 3 mL of 1% injected slowly. Needle retracted nursing home, flushed with 1 mL of 1% lidocaine and removed. Sterile bandage placed over injection site. No new motor deficits present in lower extremity following procedure. The patient tolerated the procedure well. Carefully escorted to recovery room in stable condition. No apparent complications. After meeting discharge criteria, the patient discharged home. By: [id number] Dick Sue DO /nt
[2021-07-02 13:02] VITALS: BP 137/73
== END | disposition home or self-care (01) ==
LOC: PAIN 07:38
PROVIDERS: ATTEND Anesthesiology Pain Medicine
DX: M51.16 Intervertebral disc disorders with radiculopathy, lumbar region (principal); M47.27 Other spondylosis with radiculopathy, lumbosacral region; M47.26 Other spondylosis with radiculopathy, lumbar region; G89.29 Other chronic pain; I10 Essential (primary) hypertension; M19.90 Unspecified osteoarthritis, unspecified site; Z98.890 Other specified postprocedural states; Z79.899 Other long term (current) drug therapy; Z88.8 Allergy status to other drugs, medicaments and biological substances

== ENCOUNTER → 2021-09-11 | Outpatient (CLI) | payer OTHER ==
[~2021-09-11] VITALS: Ht 157.5 cm; Wt 63.3 kg
[2021-09-11 10:27] VITALS: BP 134/68
--- NOTE | 2021-09-11 10:37 | NUR ---
Pain Clinic Assessment: 1. History of Osteoarthritis: BACK History of Rheumatoid Arthritis: Not Applicable 2. Height: 5 ft. 2 in. 157.5 cm. Weight: 139.6 lb. oz. 63.322 kg. Patient's BMI: 25.5 3. Vital Signs: BP: 134/68 Pulse: 79 Resp: 14 Temp: 02 Sat: 98 ECG Mon: 4. Pain Intensity: 10 5. Fall Risk: Dizziness: N Needs help standing or walking: N Fallen in the last 3 months: N Fall risk comments: 6. Patient on Blood Thinner: None 7. History of Hypertension: Y 8. Opioid Therapy greater than 6 weeks: N Opiate Contract Signed: 9. Risk Assessment Tool Provided: LOW RISK 3 10. Functional Assessment Tool: 59/70 11. Recreational Drug Use: Never Drug Type: Tobacco Use: Former Smoker Tobacco Type: Amount or Packs/day: How Many Years: Alcohol Use: No Frequency: Quant:
--- NOTE | 2021-09-17 09:06 | HPC ---
[facility] [place] [address] PAIN MANAGEMENT CONSULTATION Name: ERMELINDA MICHAUD [facility]: [id number] Admission: 09/11/21 Attend Phys: Dick Sue DO Discharge: Date of : 59 Report #: [id number] THIS REPORT FOR: cc: Melisa Kendall MD,Dick Grijalva MD, DO ~ cc: Melisa Kendall MD DATE OF SERVICE: 09/11/2021 REFERRING PHYSICIAN: Dr. Melisa Kendall. CHIEF COMPLAINT: Low back pain, lower extremity pain with paresthesias. HISTORY OF PRESENT ILLNESS: As you know, the patient is a very pleasant 66-year-old female who returns today in followup visit requesting to undergo lumbar epidural injection under fluoroscopic guidance. Unfortunately, the patient has had a slow and progressive return of symptoms for which she is now placing pain score at 10/10. She indicates pain is aching, sharp, stabbing, tender and grabbing in sensation, exacerbated with reaching, standing, walking and sitting, improves with walking, repositioning and previous epidural injections. Most recent epidural injection gave 80% improvement in overall pain until just recently where she has had a slow and progressive return of symptoms. She returns today in followup visit requesting a lumbar epidural injection under fluoroscopic guidance to address recurrent lumbar radicular symptoms. The patient denies injury or trauma that may have led to symptom development. She denies any changes in medication management that would preclude her from undergoing an injection requested today. ALLERGIES: NONSTEROIDAL ANTI-INFLAMMATORIES, ABILIFY, ADDERALL, SEROQUEL, TETRACYCLINE. CURRENT MEDICATIONS: See chart. SOCIAL HISTORY: The patient denies tobacco use. Denies IV or illicit drug use. Working; not receiving Workmen's compensation, unaccompanied today. IMAGING: No new imaging available. PQRS: The patient has known arthritic changes of lumbar spine, bilateral hips and knees. No rheumatoid arthritis. She is placing current pain intensity 10/10. She is not a fall risk, has not had a fall in last 3 months. She is not on blood thinners, but is treated for hypertension. She is on no opioid medications. She has a low risk for opioid addiction based on our assessment tool. Pain impact is 59/70, severe interference of daily activities secondary to pain. [facility] [address] [place] [address] PAIN MANAGEMENT CONSULTATION Name: ERMELINDA MICHAUD Room #: REG CLI [facility]#: [id number] Admission: 09/11/21 Attend Phys: Dick Sue DO Discharge: Date of : 59 Report #: [id number] PHYSICAL EXAMINATION: VITAL SIGNS: Blood pressure 134/68, pulse 79, respiratory rate 14 and unlabored. The patient 98% on room air. Height 5 feet 2 inches tall, weight 139.6 pounds, BMI calculated 25.5. GENERAL: Well-developed, well-nourished, well-hydrated 66-year-old female appearing stated age, pain is rated today at around 10/10. HEENT: Normocephalic, atraumatic. She is wearing a mask in compliance with COVID-19 regulations in hospital policies. EXTREMITIES: Show no clubbing, no cyanosis and no appreciable edema. MUSCULOSKELETAL: Lower extremity strength equal and symmetrical 5/5. Gait appears normal today. Seated straight leg raising remains negative. Supine straight leg raising is positive. Fabere's test is negative. Modified Gaenslen's positive for axial back pain. Ankle clonus negative. Babinski is negative. Muscle bulk and tone is symmetrical in lower extremities. ASSESSMENT: 1. Symptomatic lumbar radiculopathy. 2. Lumbosacral spondylosis with radiculopathy. 3. Facet arthropathy of lumbar spine. 4. Lumbar degeneration. 5. Chronic intractable pain. PLAN: 1. The patient returns today in followup visit requesting a lumbar epidural injection under fluoroscopic guidance. She has done very well with previous lumbar epidural injections and is hopeful to see similar improvement today. As indicated in the history of present illness, the patient received about 81% improvement in overall pain with the previous procedure she made 80% improvement in overall pain with previous procedure. She returns today requesting the next in the series. She has been advised risks and benefits of the procedure, states she understood and wished to proceed. No medication changes made at today's visit. The patient will continue current medical therapy as prior prescribed. 2. We will see the patient back in followup visit on an as needed basis. We are hopeful the patient will once again see good and prolonged benefit with the procedure. DESCRIPTION OF PROCEDURE: L5-S1 interlaminar epidural steroid injection under fluoroscopic guidance. After obtaining written consent, the patient was taken back to fluoroscopy suite, placed in prone position with pillow under abdomen to decrease lumbar lordosis. Skin overlying lumbosacral area then prepped and draped in aseptic fashion. The L5-S1 vertebral interspace was identified by AP fluoroscopy. Skin and subcutaneous tissue overlying target site injection anesthetized with 3 mL 1% lidocaine. [address] [address] PAIN MANAGEMENT CONSULTATION Name: ERMELINDA MICHAUD Room #: REG CLI [facility]#: [id number] Admission: 09/11/21 Attend Phys: Dick Sue DO Discharge: Date of : 59 Report #: [id number] A 20 gauge 3-1/2 inch Tuohy needle advanced under fluoroscopic guidance towards the epidural space using a parasagittal approach. Epidural space identified using loss of resistance to air technique. After negative aspiration for heme or cerebrospinal fluid, 1 mL of Omnipaque injected. Lumbar epidurogram confirmed using both AP and lateral fluoroscopy. After negative aspiration for heme or cerebrospinal fluid, 5 mL solution containing 2 mL 40 mg per mL 80 mg total triamcinolone along with 3 mL of lidocaine, 1% injected slowly. Needle retracted residential flushed with 1 mL of 1% lidocaine and removed. Sterile bandage placed over injection site. No new motor deficits present in lower extremity following procedure. The patient tolerated the procedure well, carefully escorted to recovery room in stable condition. No apparent complications. After meeting discharge criteria, the patient discharged home. <ELECTRONICALLY SIGNED> By: Dick Sue DO 09/17/2106 0724 [id number] Dick Sue DO /nt
== END | disposition home or self-care (01) ==
LOC: PAIN 07:12
PROVIDERS: ATTEND Anesthesiology Pain Medicine
DX: M51.16 Intervertebral disc disorders with radiculopathy, lumbar region (principal); M47.27 Other spondylosis with radiculopathy, lumbosacral region; M47.26 Other spondylosis with radiculopathy, lumbar region; G89.29 Other chronic pain; I10 Essential (primary) hypertension; Z98.890 Other specified postprocedural states; Z79.899 Other long term (current) drug therapy; Z88.8 Allergy status to other drugs, medicaments and biological substances

== ENCOUNTER → 2021-12-03 | Outpatient (CLI) | payer OTHER ==
[~2021-12-03] VITALS: Ht 157.5 cm; Wt 59.9 kg
[~2021-12-03] MED LIST changes: +DILANTIN100 MG PO
--- NOTE | ~2021-12-03 | HPC ---
[facility] [place] [address] PAIN MANAGEMENT CONSULTATION Name: ERMELINDA MICHAUD Room #: REG [facility].#: [id number] Admission: 12/03/21 Attend Phys: Dick Sue DO Discharge: Date of : 59 Report #: [id number] THIS REPORT FOR: cc: Melisa Kendall MD,Dick Grijalva MD, DO ~ cc: Melisa Kendall MD DATE OF SERVICE: 12/03/2021 REFERRING PHYSICIAN: Dr. Melisa Kendall CHIEF COMPLAINT: Low back pain, bilateral lower extremity pain, right greater than left. HISTORY OF PRESENT ILLNESS: As you know, the patient is a very pleasant 66-year-old female who has been followed by [facility] for an extended period of time for lumbar radiculopathy. She has undergone intermittent epidural injections under fluoroscopic guidance with excellent benefit, most recent gave 90% improvement in overall pain until a couple of weeks ago where she has had a slow and progressive return of symptoms. She is now experiencing more bilateral pain than she has in the past. She has recently sought evaluation through her primary care physician who has referred the patient on to undergo MRI imaging as the patient is experiencing greater symptoms and now discussing bilateral lower extremity pain. She is scheduled for 12/13. She describes her pain today as aching, sharp, stabbing, numbness, tingling, grabbing, places pain intensity at a 10/10. She states that reaching, standing, sitting and walking exacerbate symptoms, repositioning tends to improve pain. The patient has been referred back to our clinic to undergo lumbar epidural injection under fluoroscopic guidance. She has had no new injury, no new trauma or any changes in medication management since her last visit. ALLERGIES: TETRACYCLINE. CURRENT MEDICATIONS: Dilantin 200 mg p.o. at bedtime, coenzyme Q 100 mg once a day, magnesium citrate 296 mL per day, omega-3 fish oil 1 tab per day, levothyroxine 50 mcg per day, diclofenac gel applied topically 3 times a day, Tylenol No. 3 with codeine 1 tab every 4 hours p.r.n. pain, Pristiq 100 mg once a day, metoprolol 25 mg b.i.d., quetiapine 50 mg 3 times a day, potassium chloride 10 mEq once a day, quetiapine XR 300 mg once a day, zolpidem 12.5 mg once a day, Vyvanse 30 mg once a day, alprazolam 0.5 mg 4 times a day. SOCIAL HISTORY: The patient denies tobacco use. Denies IV or illicit drug use. She is working, not receiving workmen's compensation, unaccompanied today. IMAGING: No new imaging available. [address] [address] PAIN MANAGEMENT CONSULTATION Name: ERMELINDA MICHAUD [facility] [id number] Admission: 12/03/21 Attend Phys: Dick Sue DO Discharge: Date of : 59 Report #: [id number] PQRS: The patient has known arthritic changes of lumbar spine, bilateral hips and knees. No rheumatoid arthritis. Pain intensity is at a 10/10. She is not a fall risk, has not had a fall in last 3 months, not on blood thinners, but is treated for hypertension. She is on opioid medications, has a low opioid addiction potential based on assessment tool. Pain impact is 62-70, severe interference with daily activities secondary to pain. PHYSICAL EXAMINATION: VITAL SIGNS: Blood pressure 134/79, pulse 99, respiratory rate 16 and unlabored. The patient 99% on room air. Height 5 feet 2 inches tall, weight 132 pounds, BMI calculated 24.1. GENERAL: Well-developed, well-nourished, well-hydrated 66-year-old female appearing stated age, pain is rated today 10/10. HEENT: Normocephalic, atraumatic. Pupils are round. She is wearing a facemask in compliance with COVID-19 positive regulations. EXTREMITIES: No cyanosis, no edema. MUSCULOSKELETAL: Lower extremity strength remains symmetrical 5/5. Muscle bulk and tone is symmetrical in comparing lower extremities. Seated straight leg raising is negative. Supine straight leg raising is positive on the right. Fabere's test negative. Modified Gaenslen's positive for axial back pain. Gait is mildly antalgic, favoring right lower extremity. ASSESSMENT: 1. Symptomatic lumbar radiculopathy. 2. Displacement of lumbar intervertebral disk with radiculopathy. 3. Lumbosacral spondylosis with radiculopathy. 4. Facet arthropathy of lumbar spine. 5. Lumbar degeneration. 6. Chronic intractable pain. PLAN: 1. The patient returns today in followup visit indicating increasing back pain, continued right lower extremity pain, but new additional left lower extremity pain. She is to undergo MRI imaging on 12/13 for further evaluation. This was requested by the patient's primary care physician. We will be monitoring for that imaging study. I have requested the patient contact our clinic after she has completed this imaging study so that we can obtain those results. She is agreeable with that plan. 2. The patient returns today requesting a lumbar epidural injection under fluoroscopic guidance. She noted excellent benefit with previous epidural injection with 90% improvement in overall pain lasting for 2 months. Unfortunately, a slow and progressive return of symptoms, no inciting injury or trauma. She has been advised risks and benefits of the procedure, states understood and wished to proceed. 3. No medication changes made at today's visit. The patient will continue current medical therapy as prior prescribed. [address] [address] PAIN MANAGEMENT CONSULTATION Name: ERMELINDA MICHAUD [facility] [id number] Admission: 12/03/21 Attend Phys: Dick Sue DO Discharge: Date of : 59 Report #: [id number] 4. Plan to see the patient back in followup visit for the next in the series of epidural injections. I did advise the patient if she wishes to return to discuss the findings of the MRI and how that might change her treatment options, she may do so at her earliest convenience. PROCEDURE NOTE. DESCRIPTION OF PROCEDURE: L5-S1 interlaminar epidural steroid injection under fluoroscopic guidance. After obtaining written consent, the patient was taken back to fluoroscopy suite, placed in prone position with pillow under abdomen to decrease lumbar lordosis. Skin overlying lumbosacral area prepped and draped in aseptic fashion. The L5-S1 vertebral interspace identified by AP fluoroscopy. Skin and subcutaneous tissue overlying target site injection anesthetized with 3 mL 1% lidocaine. A 20 gauge 3-1/2 inch Tuohy needle advanced under fluoroscopic guidance towards the epidural space using a midline approach. Epidural space identified using loss of resistance to air technique. After negative aspiration for heme or cerebrospinal fluid, 1 mL of Omnipaque injected. Lumbar epidurogram was confirmed using both AP and lateral fluoroscopy. After negative aspiration for heme or cerebrospinal fluid, 5 mL solution containing 2 mL 40 mg per mL 80 mg total triamcinolone along with 3 mL of lidocaine, 1% injected slowly. Needle retracted jail flushed with 1 mL of 1% lidocaine and removed. Sterile bandage placed over injection site. No new motor deficits present in lower extremity following procedure. The patient tolerated the procedure well, carefully escorted to recovery room in stable condition. No apparent complications. After meeting discharge criteria, the patient discharged home. By: [id number] Dick Sue DO /nt
[2021-12-03 10:17] VITALS: BP 134/79
--- NOTE | 2021-12-03 10:31 | NUR ---
Pain Clinic Assessment: 1. History of Osteoarthritis: BACK History of Rheumatoid Arthritis: Not Applicable 2. Height: 5 ft. 2 in. 157.5 cm. Weight: 132.0 lb. oz. 59.875 kg. Patient's BMI: 24.1 3. Vital Signs: BP: 134/79 Pulse: 99 Resp: 16 Temp: 02 Sat: 99 ECG Mon: 4. Pain Intensity: 10 5. Fall Risk: Dizziness: N Needs help standing or walking: N Fallen in the last 3 months: N Fall risk comments: 6. Patient on Blood Thinner: None 7. History of Hypertension: Y 8. Opioid Therapy greater than 6 weeks: N Opiate Contract Signed: 9. Risk Assessment Tool Provided: LOW RISK 3 10. Functional Assessment Tool: 59/70 11. Recreational Drug Use: Never Drug Type: Tobacco Use: Former Smoker Tobacco Type: Amount or Packs/day: How Many Years: Alcohol Use: No Frequency: Quant:
== END | disposition home or self-care (01) ==
LOC: PAIN 09:32
PROVIDERS: ATTEND Anesthesiology Pain Medicine
DX: M51.16 Intervertebral disc disorders with radiculopathy, lumbar region (principal); M47.27 Other spondylosis with radiculopathy, lumbosacral region; M47.26 Other spondylosis with radiculopathy, lumbar region; G89.29 Other chronic pain; M19.90 Unspecified osteoarthritis, unspecified site; Z98.890 Other specified postprocedural states; Z79.899 Other long term (current) drug therapy; Z88.8 Allergy status to other drugs, medicaments and biological substances